=== PATIENT | male | born 1935 | race Caucasian/White ===

== ENCOUNTER 2019-11-05 04:05 | Emergency (ER) | payer OTHER ==
[2019-11-05 04:31] LABS: Bilirubin Negative (Negative); Blood, Urine Large (Negative); Clarity Clear (Clear); Glucose, Urine (Dipstick) Negative (Negative); Leukocyte Trace (Negative); Nitrite Negative (Negative); Protein, Urine (Dipstick) 30 mg/dL (Neg-Trace)
[2019-11-05 04:34] LABS: Squamous Epithelial 0-3 HPF (0-3); WBC/HPF 0-3 HPF (0-3)
[2019-11-05 04:35] LABS: Bacteria/HPF Rare-Few HPF (None Seen)
--- NOTE | 2019-11-05 08:00 | CT ---
PRELIMINARY REPORT/[facility]/EMERGENCY AFTER HOURS PROCEDURE: EXAM: CT Abdomen and Pelvis Without Intravenous Contrast CLINICAL HISTORY: BACK PAIN; PT. STATES PAIN BETWEEN HIS KIDNEYS AND BLADDER. TECHNIQUE: Axial computed tomography images of the abdomen and pelvis without intravenous contrast. CONTRAST: None. COMPARISON: None provided. FINDINGS: LUNG BASES: Trace bilateral pleural effusions. Right base atelectasis. Elevation left hemidiaphragm. LIVER: Superior aspect excluded from the exam. Included portions are within normal limits. GALLBLADDER AND BILE DUCTS: Gallstones are present layering within the distended gallbladder. There i s no gross inflammation. PANCREAS: Unremarkable. SPLEEN: Superior to mid aspect excluded from the exam. Included portions within normal limits. ADRENAL GLANDS: Unremarkable. KIDNEYS, URETERS, AND BLADDER: Right kidney within normal limits. 2 mm calculus midpole left kidney. Staghorn calculus within the renal pelvis measuring 1.7 cm. Mild left hydronephrosis. Ureters are of normal size. There is no definitive ureteric calculus. Calcifications are present within the pelvi s felt to represent phleboliths, extrinsic to the course of the ureters. There is haziness of fat about left kidney. STOMACH AND BOWEL: Colonic diverticuli are present. There is no intestinal obstruction or inflammatio n of bowel. Scattered stool is present throughout the colon. APPENDIX: Appendix within normal limits. PERITONEUM: No free fluid. No free air. LYMPH NODES: No lymphadenopathy. REPRODUCTIVE: Unremarkable as visualized. VASCULATURE: No aortic aneurysm. ABDOMINAL WALL AND SOFT TISSUES: Unremarkable. BONES: 8 mm anterolisthesis L4 with regards to L5. Bilateral L4 pars defects. IMPRESSION: Left nephrolithiasis. Mild left hydronephrosis. No ureteric calculus identified. There is haziness of fat about left kidney cannot exclude infectious process. Cholelithiasis without gross inflammation of gallbladder. Trace bilateral pleural effusions. Uncomplicated colonic diverticuli. ELECTRONICALLY SIGNED BY: Elba Johnston MD Nov 05, 2019 6:19:07 AM PRODUCT SAFETY ADMINISTRATOR FINAL REPORT EMERGENT AFTER HOURS NONCONTRAST CT ABDOMEN AND PELVIS: HISTORY: Back pain. Patient presents from outside institution with back pain secondary to kidney stone. COMPARISON: None. IMPRESSION: 1. Dilatation of the left renal pelvis with a 1.5 cm irregular calcification seen in the dependent po rtion of the dilated renal pelvis. No ureteral calculus is seen on the left. Mild left hydronephrosis is present. There is perinephric inflammatory stranding present with mild thickening o f the nevarez of the left renal pelvis. Infection/pyelonephritis should be considered. 2. Nonobstructing 2 to 3 mm calculus midportion left kidney. 3. No right renal or ureteral calculus is visualized, and there is no hydronephrosis on the right. 4. Cholelithiasis. 5. Incomplete imaging of the lung bases, but there is a suggestion of tiny bilateral pleural effusion s. 6. Colonic diverticulosis with small to moderate amount of retained fecal material in the region of t he cecum. 7. Multilevel degenerative changes in the lumbar spine with grade 1 anterolisthesis of L4 on L5 and s evere facet hypertrophic changes involving multiple levels of the lumbar spine. Bilateral pars defects are seen at L4. Bilateral hip osteoarthritis. 9. There is a probable hiatal hernia, but the upper abdomen and lower lung bases are incompletely van ged on this exam for more adequate evaluation. 10. Sclerosis and slight irregularity of the superior aspect of the S1 vertebral body. This may be at tributable to degenerative changes as there are prominent degenerative changes at the lumbosacral junction. However, a fracture of indeterminate age cannot be entirely excluded. 11. Findings are in agreement with the preliminary report by [facility]. Transcribed Date/Time: 11/05/2019 8:08 AM
== END 2019-11-05 06:37 | disposition still patient (30) ==
LOC: NAV ERS 04:05
DX: N20.0 Calculus of kidney (principal); I25.10 Atherosclerotic heart disease of native coronary artery without angina pectoris; I48.91 Unspecified atrial fibrillation; E78.5 Hyperlipidemia, unspecified; I10 Essential (primary) hypertension; Z86.73 Personal history of transient ischemic attack (TIA), and cerebral infarction without residual deficits; Z87.442 Personal history of urinary calculi; Z79.82 Long term (current) use of aspirin
CPT/HCPCS: 74176; 81003; 81015